=== PATIENT | female | born 1965 | race Caucasian/White ===

== ENCOUNTER 2022-08-28 20:10 | Emergency (ER) | payer OTHER ==
[~2022-08-28] VITALS: Ht 172.7 cm; Wt 58.5 kg
[2022-08-28] MEDS ORDERED: HYDROCODON-ACE1 EA10 PO (22:36)
== END 2022-08-28 23:18 | disposition home or self-care (01) ==
LOC: ED 20:10
DX: S22.42XA Multiple fractures of ribs, left side, initial encounter for closed fracture (principal); Z88.0 Allergy status to penicillin; W01.10XA Fall on same level from slipping, tripping and stumbling with subsequent striking against unspecified object, initial encounter
CPT/HCPCS: 71250; 99283-25; A9270

== ENCOUNTER 2024-10-05 07:37 | Emergency (ER) | payer OTHER ==
[~2024-10-05] VITALS: Ht 172.7 cm; Wt 57.8 kg
[~2024-10-05 07:37] MED LIST: HYDROCODON-ACE1 EA10 PO
[2024-10-05] MEDS ORDERED: OFLOXACIN5 M1 OP (07:47)
[2024-10-05] MEDS ORDERED: HYDROCODON-ACE1 EA10 PO (07:58)
[2024-10-05] MEDS ORDERED: HYDROCODONE/APAP 10/325 1 TAB PO ONE (08:00)
[2024-10-05 08:11] VITALS: BP 116/75
== END 2024-10-05 08:11 | disposition home or self-care (01) ==
LOC: ED 07:37
DX: S62.326A Displaced fracture of shaft of fifth metacarpal bone, right hand, initial encounter for closed fracture (principal); Z88.0 Allergy status to penicillin; Z79.899 Other long term (current) drug therapy; W01.198A Fall on same level from slipping, tripping and stumbling with subsequent striking against other object, initial encounter
CPT/HCPCS: 29125; 73110; 99283; A9270

== ENCOUNTER 2024-10-13 05:44 | Day surgery (SDC) | payer OTHER ==
--- NOTE | 2024-10-11 09:41 | NUR ---
PHONE CALL TO PT NO ANSWER LEFT MESSAGE AT [phone]
[~2024-10-13] VITALS: Ht 172.7 cm; Wt 54.5 kg
[~2024-10-13 05:44] MED LIST changes: +ADVIL200 M1 PO; +LACTATED RINGER'S 1,000 ML IV SCH; +OFLOXACIN5 M1 OP; +VITAMIN D325 MC2 PO
[2024-10-13 05:58] VITALS: BP 122/79
[2024-10-13] MEDS ORDERED: SODIUM CHLORIDE 0.9% 20 ML IV ONE (06:16)
[2024-10-13] MEDS ORDERED: ondansetron HCL 4 MG/2 ML VIAL ONE (06:16)
[2024-10-13] MEDS ORDERED: LIDOCAINE HCL 2% 5 ML SDV ONE ×2 (06:16→07:35)
[2024-10-13] MEDS ORDERED: KETOROLAC TROMETHAMINE 30 MG/ML VIAL ONE (06:16)
[2024-10-13] MEDS ORDERED: propofoL 200 MG/20 ML VIAL ONE ×2 (06:16→07:35)
[2024-10-13] MEDS ORDERED: Ropivacaine HCl 0.5% 30 ML VIAL ONE (06:16)
[2024-10-13] MEDS ORDERED: DEXAMETHASONE SOD PHOS 4 MG/ML VIAL ONE ×3 (06:16→07:35)
[2024-10-13] MEDS ORDERED: dexmedeTOMIDine HCl 200 MCG/2 ML VIAL ONE (06:16)
[2024-10-13] MEDS ORDERED: MIDAZOLAM HCL 2 MG/2 ML VIAL ONE (06:17)
[2024-10-13] MEDS ORDERED: LIDOCAINE HCL 1% 5 ML SDV INJ ONE (07:00)
[2024-10-13] MEDS ORDERED: CEFAZOLIN SODIUM 2 GM/20 ML SYR IV SCH (07:00)
[2024-10-13] MEDS ORDERED: IBLOOD GLUCOSE TEST STRIP 1 EA TEST VI PRN ×2 (07:00→09:00)
--- NOTE | 2024-10-13 07:41 | NUR ---
VISITED DURING SPIRITUAL CARE ROUNDS. PT STATED TIRED, WANTING TO SLEEP SO SHORT VISIT. PROVIDED SUPPORTIVE PRESENCE, PRAYER.
[2024-10-13] MEDS ORDERED: HYDROCODONE/ACETA 7.5/325 TAB PO PRN (08:30)
[2024-10-13] MEDS ORDERED: fentaNYL citrate 50 MCG/ML SDV IV PRN (09:00)
[2024-10-13] MEDS ORDERED: NALOXONE HCL 0.4 MG SYR IV PRN (09:00)
[2024-10-13] MEDS ORDERED: ondansetron HCL 4 MG/2 ML VIAL IV PRN (09:00)
[2024-10-13] MEDS ORDERED: HYDROCODON-ACE1 EA11 PO (09:27)
--- NOTE | 2024-10-13 09:38 | NUR ---
10/13/24 0937 Mariza,Tarah 4980 PT ARRIVED TO PACU ON 6L VIA MASK, RESP EVEN AND UNLABORED BUT SHALLOW. ICE PLACED ON RIGHT HAND AND ELEVATED ON PILLOW.
[2024-10-13 10:10] VITALS: BP 114/69
--- NOTE | 2024-10-13 10:21 | NUR ---
1000 PT ARRIVED TO DAY SURGERY VIA STREACHER FROM PACU. PT AWAKE AND ORIENTED, PT BREATHING EQUAL AND UNLABORED. ALL VITALS TAKEN. IV ASSESSED. PT REPORTS TOLERABLE 2/10 PAIN. PT RESTING IN BED WITH SPOUSE AT BEDSIDE. REPORT TAKEN FROM MARISOL Davis RN. PT REPORTS NO NAUSEA AT THIS TIME. PT HAS PUDDING AND CRACKERS AND WATER AT BEDSIDE. 1030 PT USED CALL LIGHT TO ALERT RN THAT PT NEEDS TO URINATE. PT ABLE TO AMBULATE TO BATHROOM AND VOID 200 MLS OF CLEAR YELLOW URINE. PT ABLE TO AMBULATE BACK TO ROOM WITH EQUAL AND STEADY GAIT. PT SPOUSE AT BEDSIDE. PT DRESSED IN OWN CLOTHES, SLING IN PLACE. PT UNDERSTANDING OF HAVING TO WAIT UNTIL 1100 TO GO HOME TO COMPLETE HOUR. PT TOLERATING PO FLUIDS AND SNACKS. PT BACK IN BED WITH CALL LIGHT WITHIN REACH AND SPOUSE AT BEDSIDE.
[2024-10-13 11:03] VITALS: BP 112/59
--- NOTE | 2024-10-13 11:22 | NUR ---
1105 HOURLY ROUNDSING DONE. VITALS TAKEN. IV DISCONTINUED FOR DISCHARGE. DISCHARGE INFORMATION GONE OVER. NO QUESTIONS AT THIS TIME. 1110 PT DISCHARGED VIA WHEELCHAIR TO THE FRONT OF THE HOSPITAL TO PT'S SPOUSE'S CAR. PT SPOUSE HAS DISCHARGE INFO AND PRESCRIPTION IN HAND.
--- NOTE | 2024-10-13 11:47 | OR ---
[facility] [address] [place], [place] [address] Signed DATE OF OPERATION: 10/13/2024 SURGEON: Kathy Calvillo MD PREOPERATIVE DIAGNOSIS: Right fifth metacarpal fracture, displaced. POSTOPERATIVE DIAGNOSIS: Right fifth metacarpal fracture, displaced. PROCEDURE PERFORMED: Open reduction and internal fixation of right fifth metacarpal. GASOLINE POWER SHOVEL OPERATOR: None. ANESTHESIA: General. TOURNIQUET TIME: 32 minutes. IMPLANTS: Six-hole 1.5 mm plate. BRIEF HISTORY: Bhavana is a 59-year-old female with a fracture of her fifth metacarpal, was a long oblique fracture that was displaced and foreshortened. Risks and benefits of operative treatment were discussed with her and she elected to proceed. DESCRIPTION OF PROCEDURE: Once consent was obtained she was taken to the operating room. After adequate anesthesia she was placed on the operating room table, hand table was placed as well. The arm was prepped and draped in a standard sterile fashion up to a well-padded proximal arm tourniquet. The arm was then exsanguinated using Esmarch bandage and tourniquet inflated to 200 mmHg. A standard longitudinal incision was made along the dorsal lateral aspect of the fifth metacarpal. This was carried through skin and subcutaneous tissue and directly down onto the periosteum. Periosteum was incised longitudinally. The fracture was distracted and cleared of debris. It was then reduced using a pin clamp and 0.028 K-wire was passed across the fracture and holding it in Electronically Signed By: KATHY CALVILLO MD 10/13/24 1147 PATIENT NAME: BHAVANA AC OPERATIVE REPORT DATE OF : 61 REPORT #: [id number] PHYSICIAN: KATHY CALVILLO MD PCP: ANT PASCAL MD REPORT IS CONFIDENTIAL AND NOT TO BE RELEASED WITHOUT AUTHORIZATION [facility] [address] [place] [id number] Signed position. We then fashioned a 1.5 mm plate to the dorsal lateral aspect of the metacarpal. This was held in position and checked using image intensifier. The first two screws were placed on either side of the fracture and again position of screw length was checked. The remaining four holes were drilled and appropriate length screws were placed. The pin clamp and pin removed and final radiograph showed good reduction and screw lengths. The wound was copiously irrigated with normal saline, closed in layers using 3-0 Monocryl and 3-0 nylon. Wound was then dressed with Allevyn, sterile cast padding and a boxer splint. She tolerated the procedure well. All sponge, needle, and instrument counts were correct. Kathy Calvillo MD BA/SONIA /[id number] Copies: ~ Electronically Signed By: KATHY CALVILLO MD 10/13/24 1147 PATIENT NAME: BHAVANA AC OPERATIVE REPORT DATE OF : 61 REPORT #: [id number] PHYSICIAN: KATHY CALVILLO MD PCP: ANT PASCAL MD REPORT IS CONFIDENTIAL AND NOT TO BE RELEASED WITHOUT AUTHORIZATION
[2024-10-13] MEDS ORDERED: SEVOFLURANE 250 ML BTL INH ONE (14:24)
== END 2024-10-13 11:10 | disposition home or self-care (01) ==
LOC: DS 05:44
PROVIDERS: ATTEND Specialist
PROC: 0PSP04Z Reposition Right Metacarpal with Internal Fixation Device, Open Approach (ICD-10-PCS; principal; 2024-10-13 08:30)
DX: S62.306A Unspecified fracture of fifth metacarpal bone, right hand, initial encounter for closed fracture (principal); Z88.0 Allergy status to penicillin; W01.190A Fall on same level from slipping, tripping and stumbling with subsequent striking against furniture, initial encounter
CPT/HCPCS: 01830; 64417; 73120; 76942; C1713; J0690; J1100; J1885; J2003; J2250; J2405; J2704; J2795; J7121